=== PATIENT | male | born 1995 | race Caucasian/White ===

== ENCOUNTER 2017-06-07 07:13 | Emergency (ER) | payer MEDICAID, OTHER ==
--- NOTE | 2017-06-07 08:04 | ED Physician Chart ---
Chief Complaint/HPI - Patient Information Date Seen:: 06/07/17 Time Seen:: 07:50 Chief Complaint:: DISLOCATED RT SHOULDER History of Present Illness:: This 21-year-old male dislocated his right shoulder at approximately 6 AM this morning as he was rolling over in bed. The patient has an estimated 5-6 prior episodes of dislocating the same shoulder. The patient has a history of seizures for which he takes Tegretol. Patient states he did not wake up with the shoulder dislocated and that he specifically recalls rolling over in bed when it came out. He rates the pain as an 8/10 with any movement of the shoulder. When he is at rest he rates the pain as a 2/10. Movement exacerbates the pain. Meaning still, relieves the pain. There is been no associated nausea, vomiting, or difficulty breathing. Allergies:: Allergies Allergy/AdvReac Type Severity Reaction Status Date / Time No Known Allergies Allergy Verified 06/07/17 07:23 Vitals:: Vital Signs - 8 hr 06/07/17 07:24 Temp 97.9 F HR 80 RR 14 BP 100/70 O2 Sat % 98 Historian:: Patient Review of Systems - Review of Systems General/Constitutional: No fever, No chills Eyes: No loss of vision, No diplopia ENT: No earache, No sore throat, Other (no soreness of the tongue.) Neck: No neck pain, No swelling, No thyromegaly, No stiffness, No mass noted Cardio Vascular: No chest pain, No palpitations, No edema Pulmonary: No SOB, No cough, No sputum GI: No nausea, No vomiting, No diarrhea, No pain G/U: No dysuria, No frequency, No hematuria Musculoskeletal: Bone or joint pain, No back pain, No muscle pain, Other (pain in the region of the right shoulder.) Psychiatric: No prior psych history, No depression, No suicidal ideation Hematopoietic: No bruising, No lymphadenopathy Neurological: No syncope, No focal symptoms, No weakness, No paresthesia, No headache (history of seizure disorder since age 14.), No dizziness, No confusion , No vertigo Past Medical History - Past Medical History Past Medical History: Seizures, Other (Repeated dislocations of the right shoulder.) Physical Exam - Physical Examination General/Constitutional: Awake, Well-developed, well-nourished, Alert, No distress, Non-toxic appearing, Ambulatory Head: Atraumatic Eyes: Lids, conjuctiva normal, PERRL, EOMI Skin: Nl inspection, No rash, No skin lesions, No ecchymosis, Well hydrated, No lymphadenopathy ENMT: External ears, nose nl, Lips, teeth, gums nl, Oropharynx nl, Tonsils nl Neck: Nontender, Full ROM w/o pain, No JVD, No nuchal rigidity, No mass, No stridor Respiratory: Nl effort/Exclusion, Clear to Auscultation, No Wheeze/Rhonchi/Rales Cardio Vascular: RRR, No murmur, gallop, rubs, NL S1 S2 Other Cardio Vascular comments:: Good pulses all four extremities. GI: No tenderness/rebounding/guarding, No organomegaly, No hernia, Normal BS's, Nondistended, No mass/bruits, No McBurney tenderness Other GI comments:: Rectal examination not indicated. : No CVA tenderness, NL external genitalia ( Tenderness and deformity of the right shoulder consistent with anterior dislocation.) Neuro/Psych: Alert/oriented, DTR's symmetric, Normal sensory exam, Normal motor strength, Judgement/insight normal, Mood normal, Normal gait Misc: Normal back, No paraspinal tenderness Labs/Radiology/EKG Results - Lab Results Results: Right shoulder two views: anterior dislocation of the shoulder. No clavicular fracture. Hill sachs fracture of the head. No soft tissue abnormalities. impression: anterior dislocation of the shoulder. Assessment - Assessment General Assessment: CASE SUMMARY: This 21 year old male dislocated his right shoulder this morning While rolling over in bed. The patient has had multiple prior dislocations of his right shoulder. X-rays of the shoulder confirmed the dislocation. Procedural sedation was obtained with atomic date and the shoulder reduced with linear traction. Patient was fitted with a shoulder immobilizer and advice to follow up with his orthopedic doctor within the next week or two. Discharged in stable condition. [facility] DDX FOR RT SHOULDER INJURY: NOT SCAPULAR FRACTURE BASED ON X-RAY. NOT GLENOID FRACTURE BASED ON X-RAY STUDY. ED Septic Shock - . Is Septic Shock (SBP<90, OR Lactate>4 mmol\L) present?: No - <6hrs of presentation: Vital Signs: Vital Signs - 8 hr 06/07/17 07:24 Temp 97.9 F HR 80 RR 14 BP 100/70 O2 Sat % 98 Reassessment (Disposition) - Reassessment Reassessment Condition:: Improved - Diagnosis Diagnosis:: RIGHT SHOULDER ANTERIOR DISLOCATION. HISTORY OF SEIZURE DISORDER. - Aftercare/Follow up Instructions Aftercare/Follow-Up Instructions:: Counseled pt regarding lab results/diagnosis & need follow up, Counseled pt & family regarding lab results/diagnosis & need follow up - Patient Disposition Discharge/Transfer:: Home ED Discharge Plan - Patient Disposition Admit/Discharge/Transfer: PT DISCHARGED HOME Instructions: Shoulder Dislocation, Shoulder Dislocation, [id number]
--- NOTE | 2017-06-07 09:38 | Diagnostic Imaging Report ---
Right shoulder 3 views including post reduction views Indication: Dislocation Comparison: none Findings: The first image demonstrates anterior/inferior dislocation of the right humerus. A Hill-Sachs fracture is also noted. The second and third images demonstrate status post reduction with jain of anatomic alignment. The AC joint is preserved. Impression: Right shoulder dislocation and status post reduction. Post reduction images demonstrate jain of anatomic alignment. A Hill-Sachs fracture is noted, sequela of patient's dislocation injury. No gross Bankart lesion identified. In the setting of trauma, if clinical symptoms persist and there is continued concern for an occult fracture, follow up exams in 5-7 days is suggested.
[2017-06-07] MEDS ORDERED: Sodium Chloride 0.9% 500 ML IV ONE (10:21)
== END 2017-06-07 10:50 | disposition home or self-care (01) ==
LOC: ER 07:13
DX: S43.004A Unspecified dislocation of right shoulder joint, initial encounter (principal); G40.909 Epilepsy, unspecified, not intractable, without status epilepticus; Z88.0 Allergy status to penicillin; X58.XXXA Exposure to other specified factors, initial encounter; Y93.89 Activity, other specified; Y92.89 Other specified places as the place of occurrence of the external cause; Y99.8 Other external cause status
CPT/HCPCS: 99285; 23650; 73030; 36415; 80156; 96374; 96375; J2405; J7040; 90799; J2270